=== PATIENT | female | born 1980 | race African-American/Black ===

== ENCOUNTER 2020-05-31 12:16 | Emergency (ER) | payer BC, SELFPAY ==
--- NOTE | ~2020-05-31 | XR_ITS ---
EXAMINATION: XR chest 2V DATE: 05/31/2020 13:11 INDICATION: Left chest pain. TECHNIQUE: Frontal and lateral views of the chest were obtained. COMPARISON: None. FINDINGS: The chest demonstrates clear lungs without pneumonia, pleural effusion, or pneumothorax. Th e heart size is normal. IMPRESSION: 1. No acute cardiopulmonary disease. Reviewed, dictated and finalized at location B. [place] [employer]
--- NOTE | 2020-05-31 12:31 | ECG_ITS ---
Measurements Intervals [place] Rate: 64 P: 59 AL: 150 QRS: 73 QRSD: 82 T: 31 QT: 428 QTc: 442 Interpretive Statements SINUS RHYTHM CANNOT RULE OUT SEPTAL INFARCT, AGE INDETERMINATE ABNORMAL ECG Electronically Signed On 05-31-2020 13:51:31 [employer] SPECIALIST by Bernard Wheeler D.O.
--- NOTE | 2020-05-31 12:41 | ED.CHESTPAIN ---
HPI - Chest Pain General Chief Complaint: Chest Pain Stated Complaint: chest pain Time Seen by Provider: 05/31/20 12:33 Source: RN notes reviewed History of Present Illness HPI narrative: Patient presents emergency department from home for left-sided chest pain. Patient states pain is located in the left upper chest and described as sharp and stabbing. Patient states pain last approximately a minute and then resolved. Radiates into her left arm. States she had 2 episodes today. Also states that she had approximately 2 episodes 3 days ago she had no episodes between 3 days ago and today. She denies any fevers or chills shortness of breath abdominal pain nausea vomiting or any other symptoms. States she took no previous pain medication denies any pain at this time Related Data Allergies Allergy/AdvReac Type Severity Reaction Status Date / Time metronidazole Allergy Severe Swelling Verified 05/31/20 13:11 gabapentin Allergy Other Verified 05/31/20 13:11 Review of Systems Review of Systems: Narrative: Gen.: Denies fevers or chills ENT: Denies congestion Respiratory: Denies shortness of breath or cough CV: See HPI GI: Denies abdominal pain nausea, emesis or diarrhea denies burning, urgency, frequency or hematuria Musculoskeletal: Denies back pain or muscle pain Neuro: Denies numbness, tingling, weakness or focal weakness Skin: Denies rash Except as documented, all other systems reviewed and negative FORMERLY [facility] Past Medical History Medical History (Updated 05/31/20 @ 17:19 by Gareth Guzman DO) Patient denies significant medical history Social History Social History (Updated 05/31/20 @ 12:42 by Gareth Guzman DO) Smoking status: Never smoker Exam Narrative: Exam Narrative: APPEARANCE: No acute distress, nontoxic, resting in bed EYES: EOMI HEENT: Normocephalic, atraumatic, OMM RESPIRATORY: No respiratory distress Clear to auscultation bilaterally with no rhonchi wheezing or rales. CARDIOVASCULAR: Regular rate and rhythm without murmurs rubs or gallops. ABDOMINAL: Soft, nontender, nondistended, no rebound or guarding MUSCULOSKELETAl: Moves all extremities. No clubbing, cyanosis or edema. NEURO: Awake and alert. Following commands, speech normal, no focal deficits SKIN:: Warm, dry. No rashes lesions or abrasions PSYCHIATRIC: Normal affect/mood, Course Course Emergency Course: Discussed with Dr Sebastian for cardiology presentation work-up. This time with 2-day troponins in the ED feels patient may be discharged and follow-up as an outpatient Discussed with patient results of workup and diagnosis. Discussed need for follow-up with primary care, proper use of medication, and reasons to return to the emergency department. Patient understands and agrees to current treatment plan Vital Signs Vital signs: Vital Signs Temperature 97.4 F L 05/31/20 12:59 Pulse Rate 63 05/31/20 12:59 Respiratory Rate 16 05/31/20 12:59 Blood Pressure 140/89 05/31/20 12:59 Pulse Oximetry 99 05/31/20 12:59 Temperature 97.4 F L 05/31/20 12:59 Pulse Rate 63 05/31/20 12:59 Respiratory Rate 16 05/31/20 12:59 Blood Pressure 140/89 05/31/20 12:59 Pulse Oximetry 99 05/31/20 12:59 MDM - Chest Pain MDM Narrative Medical decision making narrative: Patient's EKGs and labs are without significant high risk changes. Cardiac risk factors reviewed. Patient is felt likely low risk for ACS and reasonable for further risk stratification testing as an outpatient. Pain was not sudden or maximal in onset without tearing or ripping quality. No other signs of symptoms suggest aortic dissection. A low-risk Wells criteria is noted, PE is felt to be unlikely. No pneumonia seen on evaluation today. Patient is felt to be a reasonable candidate for continued evaluation as an outpatient Lab Data Result diagrams: 05/31/20 12:52 05/31/20 12:52 Labs: Lab Results 05/31/20 05/31/20 05/31/20 Range/Uni
[2020-05-31 12:58] LABS: Basophils Percent Auto 0.4 % (0.2-1.2); Eosinophils Absolute Auto 0.1 K/mm3 (0-0.3); Eosinophils Percent Auto 0.9 % (0-4.4); Hematocrit 37.1 % (37.0-47.0); Hemoglobin 12.6 g/dL (12.0-15.0); Immature Granulocyte Absolute 0.02 K/mm3 (0.00-0.031); Immature Granulocyte Percent A 0.4 % (0-0.5); Lymphocytes Absolute Auto 2.21 K/mm3 (0.9-3.2); Lymphocytes Percent Auto 38.9 % (18.3-44.2); Mean Corpuscular Hemoglobin 29.5 pg (26-34); Mean Corpuscular Volume 86.9 fl (80-100); Mean Platelet Volume 9.8 fl (7.4-10.4); Monocytes Absolute Auto 0.4 K/mm3 (0.1-0.6); Monocytes Percent Auto 7.7 % (2.6-8.5); Neutrophils Absolute Auto 2.9 K/mm3 (1.3-6.7); Neutrophils Percent Auto 51.7 % (45.5-73.1); Platelet Count Result 302 k/mm3 (150-375); Red Blood Count 4.27 M/mm3 (4.2-5.4); Red Cell Distribution Width 11.9 % (11.5-14.5); White Blood Count 5.7 K/mm3 (4.5-10.0)
[2020-05-31 12:59] VITALS: BP 140/89; PULSE 63; RESP 16; TEMP 36.3; O2SAT 99
[2020-05-31 13:08] LABS: Prothrombin Time 13.3 Seconds (11.1-14.7)
[2020-05-31 13:09] LABS: Partial Thromboplastin Time 27.3 SECONDS (22.3-36.8)
[2020-05-31 13:10] LABS: Add Urine Microscopic? YES; Appearance Urine Clear (Clear); Bacteria Urine Trace /hpf; Bilirubin Urine Negative (Negative); Blood Urine 2+ (Negative); Color Urine Yellow (Yellow); Glucose Urine UA Negative (Negative); Ketones Urine Negative (Negative); Leukocyte Esterase Ur Negative LEU/UL (Negative); Nitrate Urine Negative (Negative); Protein Urine Negative (Negative); RBC Urine 0-2 /hpf (0-2); Specific Grav Ur 1.016 (1.001-1.035); Squamous Epithelial Cell Urine Few /hpf (Few); Urobilinogen Urine Negative mg/dL (<2.0); WBC Urine 0-3 /hpf
[2020-05-31 13:15] LABS: Anion Gap 6 mmol/L (8-16); Blood Urea Nitrogen 12 mg/dL (7-17); Calcium 8.6 mg/dL (8.4-10.2); Carbon Dioxide 29 mmol/L (22-30); Chloride 102 mmol/L (98-107); Estimated Glomerular Filt Rate > 60; Glucose 85 mg/dL (65-105); Potassium 3.9 mmol/L (3.4-5.0); Sodium 137 mmol/L (137-145)
--- NOTE | 2020-05-31 13:17 | PC.NURSE ---
1317 - Patient self-admin aspirin 81mg x4 prior to arrival to ER today.
[2020-05-31 13:27] LABS: Troponin I < 0.012 ng/mL (0.000-0.034)
[2020-05-31 16:35] LABS: Troponin I < 0.012 ng/mL (0.000-0.034)
[2020-05-31 17:17] LABS: D Dimer 0.27 ug/mL (<0.48)
== END 2020-05-31 17:31 | disposition home or self-care (01) ==
PROVIDERS: Emergency Provider Emergency Medicine
DX: R07.89 Other chest pain (principal); R94.31 Abnormal electrocardiogram [ECG] [EKG]
CPT/HCPCS: 36415; 71046; 80048; 81001; 81025; 84484; 85025; 85380; 85610; 85730; 93005; 99284